=== PATIENT | male | born 2000 | race African-American/Black ===

== ENCOUNTER 2025-04-15 08:37 | Emergency (ER) | payer SELFPAY | END 2025-04-15 09:09 | disposition home or self-care (01) | LOC: NAV ERS 08:37 | DX: B30.9 Viral conjunctivitis, unspecified (principal); I10 Essential (primary) hypertension | CPT/HCPCS: 99283 ==

== ENCOUNTER 2025-04-21 10:35 | Emergency (ER) | payer SELFPAY | END 2025-04-21 11:15 | disposition home or self-care (01) | LOC: NAV ERS 10:35 | DX: R21 Rash and other nonspecific skin eruption (principal); I10 Essential (primary) hypertension | CPT/HCPCS: 99282 ==

== ENCOUNTER 2025-07-07 09:25 | Emergency (ER) | payer SELFPAY ==
[2025-07-07] MEDS ORDERED: Lidocaine Viscous Sol 2% 15 ml UD Cup ONE (09:50)
[2025-07-07] MEDS ORDERED: Mag-Al Plus 1200/1200/120 MG (30 mL) UDCUP ONE (09:50)
[2025-07-07 10:08] LABS: ALT (SGPT) 16 U/L (Less than 45); AST (SGOT) 36 U/L (11-34); Albumin 4.8 g/dL (3.1-4.5); Alkaline Phosphatase 44 U/L (40-110); Anion Gap 16 mmol/L (10-20); BUN (Urea Nitrogen) 13 mg/dL (8.9-20.6); Bilirubin, Total 1.1 mg/dL (0.3-1.2); Calc. Creatinine Clearance 0 mL/min (70-130); Calcium 9.3 mg/dL (7.8-10.44); Carbon Dioxide 20 mmol/L (22-29); Chloride 107 mmol/L (98-107); Globulin 3.2 g/dL (2.4-3.5); Glucose 77 mg/dL (70-105); Lipase 14 U/L (8-78); Potassium 4.3 mmol/L (3.5-5.1); Sodium 139 mmol/L (136-145); Troponin I Less than 0.010 ng/mL (< 0.028)
[2025-07-07 10:24] LABS: Hematocrit 49.9 % (42.0-52.0); Hemoglobin 16.7 g/dL (14.0-18.0); Mean Corpuscular Hemoglobin 28.3 pg (27.0-31.0); Mean Corpuscular Volume 84.6 fl (78.0-98.0); Platelet Count 246 10x3/uL (130-400); Red Blood Cell (RBC) Count 5.90 mill/uL (4.70-6.10); White Blood Cell (WBC) Count 3.0 10x3/uL (4.8-10.8)
[2025-07-07 10:26] LABS: Platelet Adequacy Comment Appears Adequate
== END 2025-07-07 10:35 | disposition home or self-care (01) ==
LOC: NAV ERS 09:25
DX: R07.89 Other chest pain (principal); I10 Essential (primary) hypertension
CPT/HCPCS: 71045; 80053; 83690; 84484; 85025; 93005